=== PATIENT | female | born 1985 | race Caucasian/White ===

== ENCOUNTER 2017-04-12 21:01 | Emergency (ER) | payer MEDICAID ==
[~2017-04-12] VITALS: Ht 152.4 cm; Wt 62.0 kg
[2017-04-12 21:10] VITALS: Ht 152.4 cm; Wt 62.0 kg
--- NOTE | 2017-04-12 23:20 | ERD ---
ER Documentation Chief Complaint Date/Time DATE: 04/12/17 TIME: 23:19 Chief Complaint 7 weeks preg with spotting and pelvic pain HPI Patient is a 32-year-old female who is approximately 7 weeks with a last normal menstrual period of 03/20/17 who presents to the ED with pelvic pain and mild vaginal bleeding 1 day. She states that she felt lightheaded yesterday. She states that she went to her OB doctor however her OB doctor said that everything was fine and to return to the ED for any bleeding. She states that her [facility] doctor [facility]. Denies fever or chills. Denies vomiting or diarrhea. Denies abdominal pain. Denies headache or dizziness. Denies leg pain or swelling. Denies recent travel or recent surgeries per ROS All systems reviewed and are negative except as per history of present illness. Medications Home Meds Active Scripts Acetaminophen* (Tylophen*) 500 Mg Capsule, 1 CAP PO Q6H Y for PAIN AND OR ELEVATED TEMP, #20 CAP Prov:LORE COLLIER PA-C 04/13/17 Allergies Allergies: Coded Allergies: No Known Allergy (Unverified , 04/12/17) PMhx/Soc History of Surgery: No Anesthesia Reaction: No Hx Neurological Disorder: No Hx Respiratory Disorders: No Hx Cardiac Disorders: No Hx Psychiatric Problems: No Hx Miscellaneous Medical Probl: No Hx Alcohol Use: No Hx Substance Use: No Hx Tobacco Use: No Smoking Status: Never smoker FmHx Family History: No coronary disease, No diabetes, No other Physical Exam Vitals Vital Signs Date Time Temp Pulse Resp B/P Pulse Ox O2 Delivery O2 Flow Rate FiO2 04/12/17 21:10 99.2 77 16 113/59 97 Physical Exam GENERAL: Well-developed, well-nourished female. Appears in no acute distress. HEAD: Normocephalic, atraumatic. EYES: Pupils are equally reactive bilaterally. EOMs grossly intact. No conjunctival erythema. ENT: Moist mucous membranes. No uvula deviation. No kissing tonsils. No exudates. NECK: Supple. No lymphadenopathy or thyromegaly. No meningismus. negative kernig. negative brudinski. LUNG: Clear to auscultation bilaterally. No rhonchi, wheezing, rales or coarse breath sounds. HEART: Regular rate and rhythm. No murmurs, rubs or gallops. ABDOMEN: No scars, ecchymosis or rashes noted. Soft, nontender, and nondistended. Positive bowel sounds in all four quadrants. No rebound tenderness , no guarding. (-) McBurneys point tenderness. No CVA tenderness. Mild pelvic tenderness. BACK: No midline tenderness. Extremities: Equal pulses bilaterally. No peripheral clubbing, cyanosis or edema. No unilateral leg swelling. NEUROLOGIC: Alert and oriented. Moving all four extremities. 5/5 strength in all extremities. Normal speech. Steady gait. SKIN: Normal color. Warm and dry. No rashes or lesions. Capillary refill < 2 seconds Result Diagram: 04/12/17 2300 04/12/17 2300 Results 24 hrs Laboratory Tests Test 04/12/17 23:00 04/13/17 00:00 White Blood Count 8.110^3/ul Red Blood Count 3.8110^6/ul Hemoglobin 12.5g/dl Hematocrit 36.4% Mean Corpuscular Volume 95.5fl Mean Corpuscular Hemoglobin 32.8pg Mean Corpuscular Hemoglobin Concent 34.3g/dl Red Cell Distribution Width 12.2% Platelet Count 84643^3/UL Mean Platelet Volume 11.1fl Neutrophils % 59.1% Lymphocytes % 31.2% Monocytes % 7.2% Eosinophils % 1.7% Basophils % 0.4% Nucleated Red Blood Cells % 0.0/100WBC Neutrophils # 4.810^3/ul Lymphocytes # 2.510^3/ul Monocytes # 0.610^3/ul Eosinophils # 0.110^3/ul Basophils # 0.010^3/ul Nucleated Red Blood Cells # 0.010^3/ul Sodium Level 139mmol/L Potassium Level 4.2mmol/L Chloride Level 108mmol/L Carbon Dioxide Level 25mmol/L Anion Gap 10 Blood Urea Nitrogen 8mg/dl Creatinine 0.51mg/dl Glucose Level 83mg/dl Calcium Level 9.6mg/dl Beta HCG, Quantitative 19115.0mIU/ml Urine Color LT. YELLOW Urine Clarity CLEAR Urine pH 7.0 Urine Specific [place] 1.015 Urine Ketones NEGATIVE Urine Nitrite NEGATIVE Urine Bilirubin NEGATIVE Urine Urobilinogen 0.2 E.U./dL Urine Leukocyte Esterase NEGATIVE Urine Hemoglobin NEGATIVE Urine Glucose NEGATIVE% Urine Total Protein NEGATIVE Procedures/MDM ER COURSE: I kept the patient and/or family informed of laboratory and diagnostic imaging results throughout the emergency room course. EKG, MONITORS, & DIAGNOSTIC IMAGING: [place] [id number] Radiology Main Line: [phone] DIAGNOSTIC IMAGING REPORT Patient: ANGY PENN : 1985 Age: 32 Sex: F MR #: [id number] DOS: 04/12/17 2249 Ordering MD: LORE COLLIER PA-C Location: [facility] Room/Bed: PROCEDURE: Obstetrical ultrasound. CLINICAL INDICATION: Vaginal spotting. TECHNIQUE: Multiple sonographic images of the pelvis were obtained with transabdominal technique. Images were obtained with barkley scale and color Doppler. COMPARISON: No prior studies are available for comparison. FINDINGS: The uterus is well visualized measuring 9.0 x 5.4 x 6.7 cm. No abnormal uterine mass is identified. There is an intrauterine gestational sac with a pole identified. heart tones of 171 beats per minute are identified. The crown-rump length averages 1.85 cm, compatible with 8 weeks and 2 days. The mean sac diameter averages 2.45 cm, compatible with 7 weeks and 3 days. A yolk sac is identified. There is a subchorionic collection measuring 2.1 x 1.2 x 1.5 cm. There is no pelvic free fluid. The right ovary measures 2.6 x 2.3 x 1.8 cm and the left ovary measures 3.1 x 1.8 x 2.1 cm. There is normal flow to both ovaries. There is no suspicious adnexal mass identified. IMPRESSION: Single live intrauterine with an estimated gestational age of 7 weeks and 6 days, with an ultrasound LUIS CARLOS of 11/23/2017. Subchorionic hemorrhage. .Dwight Marcus MD, MD Date Time Electronically viewed and signed by .Dwight Marcus MD, MD on 04/12/2017 23:31 .T/ CC: LORE COLLIER PA-C LAB INTERPRETATION: CBC showed no evidence of systemic infection or severe anemia. CMP showed no evidence of electrolyte abnormalities, severe acidosis, alkalosis, renal failure , or liver disease. Lipase showed no evidence of acute pancreatitis. UA showed no evidence of leukocytes, nitrites or hematuria. Beta hCG 4661.0, rh: o+ MEDICAL DECISION MAKING: This is a 32-year-old female who is who presents with mild pelvic pain and mild vaginal bleeding 1 day. Vital signs were reviewed. Patient is afebrile. Patient is not hypoxic. Patient is nontoxic or ill-appearing ultrasound is read by radiologist shows a single live intrauterine with an estimated age of 7 weeks 6 days. Low suspicion for ectopic , , molar , endometriosis, PID, cervicitis, septic , molar , HELLP syndrome, preeclampsia, eclampsia, placenta previa, placenta abruptia. Patient does not need RhoGam DISCHARGE: At this time, patient is stable for discharge and outpatient management with no new complaints during the ER course. Patient was sent home with Tylenol and a copy of all imaging and laboratory studies and to return in 2 days for recheck.. Patient will be discharged home with instructions to recheck for new or worsening symptoms such as fever, nausea, weakness, LOC and to follow up with primary care in the next 1-2 days. Patient was advised to return to the ER for any new or worsening symptoms. Plan was discussed and patient and/or family understands and agrees. Home instructions were given. Departure Diagnosis: Primary Impression: Vaginal bleeding in patient at less than 20 weeks gestation Condition: Stable LORE COLLIER PA-C Apr 12, 2017 23:20
--- NOTE | 2017-04-12 23:32 | RADRPT ---
PROCEDURE: Obstetrical ultrasound. CLINICAL INDICATION: Vaginal spotting. TECHNIQUE: Multiple sonographic images of the pelvis were obtained with transabdominal technique. Images were obtained with barkley scale and color Doppler. COMPARISON: No prior studies are available for comparison. FINDINGS: The uterus is well visualized measuring 9.0 x 5.4 x 6.7 cm. No abnormal uterine mass is identified. There is an intrauterine gestational sac with a pole identified. heart tones of 171 beat s per minute are identified. The crown-rump length averages 1.85 cm, compatible with 8 weeks a nd 2 days. The mean sac diameter averages 2.45 cm, compatible with 7 weeks and 3 days. A yolk sac is identified. There is a subchorionic collection measuring 2.1 x 1.2 x 1.5 cm. There is no pelvic free fluid. The right ovary measures 2.6 x 2.3 x 1.8 cm and the left ovary measur es 3.1 x 1.8 x 2.1 cm. There is normal flow to both ovaries. There is no suspicious adnexal mass rafal ntified. IMPRESSION: Single live intrauterine with an estimated gestational age of 7 weeks and 6 days, with an ultrasound LUIS CARLOS of 11/23/2017. Subchorionic hemorrhage. .Dwight Marcus MD, MD Date Time Electronically viewed and signed by .Dwight Marcus MD, MD on 04/12/2017 23:31 .T/
[2017-04-12 23:34] LABS: ADD SCAN DIFF NO
[2017-04-12 23:35] LABS: BASOPHILS % 0.4 % (0.0-2.0); EOSINOPHILS # 0.1 10^3/ul (0.0-0.5); EOSINOPHILS % 1.7 % (0.0-7.0); HEMATOCRIT 36.4 % (37.0-47.0); HEMOGLOBIN 12.5 g/dl (12.0-16.0); LYMPHOCYTES # 2.5 10^3/ul (0.8-2.9); LYMPHOCYTES % 31.2 % (15.0-51.0); MEAN CORPUSCULAR HEMOGLOBIN 32.8 pg (29.0-33.0); MEAN CORPUSCULAR HGB CONC 34.3 g/dl (32.0-37.0); MEAN CORPUSCULAR VOLUME 95.5 fl (82.0-101.0); MEAN PLATELET VOLUME 11.1 fl (7.4-10.4); MONOCYTE # 0.6 10^3/ul (0.3-0.9); MONOCYTES % 7.2 % (0.0-11.0); NEUTROPHIL # 4.8 10^3/ul (1.6-7.5); NEUTROPHILS % 59.1 % (39.0-77.0); PLATELET COUNT 226 10^3/UL (140-415); RED BLOOD COUNT 3.81 10^6/ul (4.20-5.40); RED CELL DISTRIBUTION WIDTH 12.2 % (11.5-14.5); WHITE BLOOD COUNT 8.1 10^3/ul (4.8-10.8)
[2017-04-12 23:56] LABS: CALCIUM 9.6 mg/dl (8.4-10.2); CREATININE 0.51 mg/dl (0.44-1.00); POTASSIUM 4.2 mmol/L (3.5-5.1)
[2017-04-13 00:25] LABS: ADD UMIC NO; UR BILIRUBIN (Dip) NEGATIVE (NEGATIVE); UR BLOOD (Dip) NEGATIVE (NEGATIVE); UR CLARITY CLEAR (CLEAR); UR COLOR LT. YELLOW (YELLOW); UR GLUCOSE (Dip) NEGATIVE (NEGATIVE); UR KETONES (Dip) NEGATIVE (NEGATIVE); UR LEUKOCYTE ESTERASE (Dip) NEGATIVE (NEGATIVE); UR NITRITE (Dip) NEGATIVE (NEGATIVE); UR TOTAL PROTEIN (Dip) NEGATIVE (NEGATIVE); UR UROBILINOGEN (Dip) 0.2 E.U./dL (0.1-1.0)
[2017-04-13] MEDS ORDERED: ACET500C5 PO (00:45)
== END 2017-04-13 01:08 | disposition home or self-care (01) ==
LOC: FTE 21:01
DX: O20.9 Hemorrhage in early pregnancy, unspecified (principal); R10.2 Pelvic and perineal pain; Z3A.01 Less than 8 weeks gestation of pregnancy
CPT/HCPCS: 36415; 76801; 80048; 81003; 84702; 85025; 86900; 86901

== ENCOUNTER 2017-09-03 12:18 | Outpatient (CLI) | payer MEDICAID ==
[~2017-09-03 12:18] MED LIST: ACET500C5 PO
--- NOTE | 2017-09-03 12:46 | RADRPT ---
PROCEDURE: OB ultrasound for biophysical profile CLINICAL INDICATION: Pain status post fall TECHNIQUE: Multiple sonographic images of the pelvis were obtained. Transabdominal views of the g ravid uterus are available for review. The images were reviewed on a PACS workstation. COMPARISON: None FINDINGS: breathing movement = 2/2 tone = 2/2 motion = 2/2 ANGELICA = 2/2 ANGELICA = 18.2 cm Single live intrauterine with cardiac activity of 168 bpm. position is breech . The placenta is anterior. IMPRESSION: 1. Single live intrauterine gestation. 2. Biophysical profile = 8. 3. ANGELICA = 18.2 cm. 4. Breech presentation. 5. No evidence of placental abruption. RPTAT: HH .Jennifer Velasquez MD, Date Time Electronically viewed and signed by .Jennifer Velasquez MD, on 09/03/2017 12:46 .G/
--- NOTE | 2017-09-03 12:57 | RADRPT ---
PROCEDURE: Limited obstetric ultrasound CLINICAL INDICATION: POST FALL TECHNIQUE: Multiple transverse and longitudinal grayscale images of the pelvis were obtained monzon sabdominally and endovaginally.. COMPARISON: same day FINDINGS: The cervix is closed and measures 3.2 cm in length. RPTAT: AA IMPRESSION: The cervix is closed and measures 3.2 cm in length. Physician Toby Date Time Electronically viewed and signed by Ankit Kapoor Physician on 09/03/2017 12:57 /
[2017-09-03] MEDS ORDERED: LACTATED RINGER'S 1,000 ML IV ONE (13:30)
[2017-09-03] MEDS ORDERED: TERBUTALINE 1 MG/ML INJ SC ONE (13:30)
--- NOTE | 2017-09-03 17:39 | PN ---
Triage Information Date/Time September 03, 2017 Reason for visit: Complaining of onset of uterine contractions and lower abdominal pain after falling down day prior Weeks of Gestation 29+ /Para 3 para 2 Additional information Was evaluated in [place] day before and was subsequently discharged home Upon visitation to [facility] noticed to have uterine contractions every 3 4 minutes After IV hydration and subcutaneous injection of terbutaline uterine contractions subsided Objective Heart Rate: 150's Contractions: None Results/Medications Result Diagram: 09/03/17 1311 Results 24 hrs Laboratory Tests Test 09/03/17 12:40 09/03/17 13:11 09/03/17 14:30 Urine Color YELLOW Urine Clarity CLEAR Urine pH 6.0 Urine Specific [place] 1.014 Urine Ketones NEGATIVE Urine Nitrite NEGATIVE Urine Bilirubin NEGATIVE Urine Urobilinogen NEGATIVE Urine Leukocyte Esterase NEGATIVE Urine Microscopic RBC 7 H Urine Microscopic WBC 1 Urine Calcium Oxalate Crystals FEW A Urine Bacteria FEW A Urine Mucus FEW A Urine Hemoglobin 2+ H Urine Glucose 2+ H Urine Total Protein NEGATIVE White Blood Count 8.8 Red Blood Count 3.74 L Hemoglobin 11.8 L Hematocrit 35.9 L Mean Corpuscular Volume 96.0 Mean Corpuscular Hemoglobin 31.6 Mean Corpuscular Hemoglobin Concent 32.9 Red Cell Distribution Width 12.9 Platelet Count 181 Mean Platelet Volume 11.0 H Neutrophils % 65.3 Lymphocytes % 23.5 Monocytes % 8.5 Eosinophils % 1.1 Basophils % 0.3 Nucleated Red Blood Cells % 0.0 Neutrophils # 5.7 Lymphocytes # 2.1 Monocytes # 0.7 Eosinophils # 0.1 Basophils # 0.0 Nucleated Red Blood Cells # 0.0 Bedside Urine pH (LAB) 6.0 Bedside Urine Protein (LAB) Negative Bedside Urine Glucose (UA) 0.1% H Bedside Urine Ketones (LAB) Negative Bedside Urine Blood 2+ H Bedside Urine Nitrite (LAB) Negative Bedside Urine Leukocyte Esterase (L Negative Imaging Results The cervix is closed and measures 3.2 cm in length. Single live intrauterine gestation. Biophysical profile = /8. ANGELICA = 18.2 cm. Breech presentation. No evidence of placental abruption. Disposition: Discharge Assessment/Plan Patient received 1 dose of betamethasone Patient is recommended to refer back to OB triage for second dose following day Note is to return to OB triage for persistent uterine contractions on her vaginal bleeding She was recommended to have bedrest and pelvic rest the rest of We will provide disability papers for the patient in case she needed KEITH MARROQUIN MD Sep 03, 2017 17:39
[2017-09-03] MEDS ORDERED: BETAMET NA PHOS/AC(6 MG/ML) 5ML INJ IM ONE (18:00)
[2017-09-03] MEDS ORDERED: NIFEdipine 10 MG CAP PO ONE (18:00)
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
[2017-09-04] MEDS ORDERED: PREN-93 PO (17:26)
== END 2017-09-03 18:40 | disposition home or self-care (01) ==
LOC: OBT 12:18 → L-D 12:24 → OBT 18:40
PROVIDERS: ATTEND Obstetrics & Gynecology
DX: O62.9 Abnormality of forces of labor, unspecified (principal); O9A.213 Injury, poisoning and certain other consequences of external causes complicating pregnancy, third trimester; R10.30 Lower abdominal pain, unspecified; W19.XXXA Unspecified fall, initial encounter; Z3A.29 29 weeks gestation of pregnancy
CPT/HCPCS: 76817; 76818; 81001; 85025; 96360; 96372; J0702; J3105; J7120; Z7500; Z7610; 81003; G0463

== ENCOUNTER 2017-09-04 16:55 | Outpatient (CLI) | payer MEDICAID ==
[~2017-09-04] VITALS: Ht 154.9 cm; Wt 66.9 kg
[2017-09-04] MEDS ORDERED: PREN-93 PO (17:26)
[2017-09-04 17:27] VITALS: BP 109/65; PULSE 97; RESP 18; Ht 154.9 cm; Wt 66.9 kg
[2017-09-04] MEDS ORDERED: BETAMET NA PHOS/AC(6 MG/ML) 5ML INJ IM ONE (17:30)
--- NOTE | 2017-09-04 18:18 | PN ---
Triage Information Date/Time September 04, 2017 Reason for visit: Here to receive the second dose of steroid Weeks of Gestation 29+ /Para 3 para 2 Diabetes: none Hypertention: none Additional information Received the first dose of steroid day before and was started on p.o. nifedipine Objective Vital Signs Date Time Temp Pulse Resp B/P Pulse Ox O2 Delivery O2 Flow Rate FiO2 09/04/17 17:27 98.5 97 18 109/65 97 Room Air Heart Rate: 150's Heart Rate Comments Reactive Contractions: None Disposition: Discharge Assessment/Plan Home on bed and pelvic rest Nifedipine 10 p.o. every 6 KEITH MARROQUIN MD Sep 04, 2017 18:18
--- NOTE | 2017-09-04 18:19 | TRIAGE ---
OB Triage Datetime Report Generated by CPN: 09/04/2017 18:18 Datetime: 09/04/2017 18:00 Stage of : OB Triage Level of Consciousness: Fully Conscious Frequency: NONE Monitor Mode: External Resting Tone [place]: Relaxed FHR Baseline Rate: 140 Monitor Mode: External US Variability: Moderate 6-25 bpm Accelerations: 15X15 Decelerations: None Category: Category I Pain Scale: 0 Pain Goal: 3 Membrane Status: Intact Vaginal Bleeding: None Datetime: 09/04/2017 17:24 Assessment Type: Triage Level of Consciousness: Fully Conscious DTR's/Clonus: DTRs 2+; No Clonus Headache: Denies Blurred Vision: No Respiratory Effort: Unlabored; Regular Rhythm; Equal Expansion Breath Sounds, Left: Clear and Equal Breath Sounds, Right: Clear and Equal Nausea/Vomiting: Denies RUQ Epigastric Pain: Denies Lower Extremities Edema: None Degree: None Upper Extremities Edema: None Degree: None Facial Edema: None History of Falling: (0) No Secondary Diagnosis: (0) No Ambulatory Aid: (0) Bedrest/Nurse Assist IV Therapy: (0) No Gait: (0) Normal/Bedrest/Immobile Mental Status: (0) Oriented to Own Ability Fall Score: 0 Fall Risk Score Definition: No Risk: No action required Datetime: 09/04/2017 17:22 Time of Arrival: 09/04/2017 16:50 EGA: 29.1 Arrived By: Ambulatory Arrived From: Home Chief Complaint: PT HERE FOR SECOND DOSE OF BETAMETHSONE Movement: Decreased Contractions: Denies/Absent Rupture of Membranes: Denies Vaginal Bleeding: None Vaginal Discharge: Denies Recent Sexual Intercouse: Denies Abdominal Trauma: Not Applicable Patient Complaints: None Time Provider Notified: 09/04/2017 17:35 Provider Notified: TERESA Initial Plan: NST/CELESTONE Datetime: 09/04/2017 17:20 Monitor Mode: External Monitor Mode: External US
== END 2017-09-04 18:25 | disposition home or self-care (01) ==
LOC: OBT 16:55 → L-D 16:57 → OBT 18:25
PROVIDERS: ATTEND Obstetrics & Gynecology
DX: O26.893 Other specified pregnancy related conditions, third trimester (principal); Z3A.29 29 weeks gestation of pregnancy; R10.9 Unspecified abdominal pain
CPT/HCPCS: 96372; J0702; Z7500; G0463

== ENCOUNTER 2017-11-18 12:03 | Inpatient (IN) | END 2017-11-21 15:25 | disposition home or self-care (01) | DRG 767 ==